=== PATIENT | female | born 1990 | race Caucasian/White ===

== ENCOUNTER → 2016-11-17 | Outpatient (CLI) | payer BC ==
[2016-11-20 11:20] LABS: BLACK RACE non-Black (()); DOWN SYNDROME RISK BY MOM'S AG 1/950 (()); GESTIONAL AGE FOR RISK ESTIMAT Scan estimate (()); MATERNAL WEIGHT/LBS 165 lbs (()); RECOMMENDED FOLLOW UP None. (()); TRISOMY 18 ESTIMATED RISK < 1/100 (())
[2016-11-20 15:16] LABS: GENERAL TEST INFO (QUAD SCREE) SEE COMMENTS (()); INHIBIN SEE COMMENTS (()); INTERPRETATION (QUAD SCREEN) SEE COMMENTS (()); OTHER INFORMATION (QUAD SCRN) Initial testing (()); uE3 SEE COMMENTS (())
== END ==
LOC: MOB LAB 10:28
PROVIDERS: ATTEND Student in an Organized Health Care Education/Training Program
DX: Z36 Encounter for antenatal screening of mother (principal); Z3A.17 17 weeks gestation of pregnancy
CPT/HCPCS: 36415; 81511; 87491; 87591

== ENCOUNTER 2016-11-22 01:31 | Emergency (ER) | payer BC ==
[2016-11-22 01:46] VITALS: RESP 22; TEMP 99.5
[2016-11-22] MEDS ORDERED: NORMAL SALINE 10 ML SYRINGE FLUSH IVP PRN (01:53)
[2016-11-22] MEDS ORDERED: Sodium Chloride 0.9% 1,000 ML PRIMARY IV ONE (01:53)
[2016-11-22 02:11] LABS: BASOPHILS # (AUTO) 0.03 10*3/UL; BASOPHILS % (AUTO) 0.3 % (0-1); EOSINOPHILS % (AUTO) 0.2 % (0-8); HEMATOCRIT 35.1 % (37.0-47.0); HEMOGLOBIN 11.7 g/dL (12.0-16.0); IMM GRAN % (AUTO) 0.2 % (0-5); IMM GRAN# (AUTO) 0.02 10*3/UL; LYMPHOCYTES # (AUTO) 0.81 10*3/uL; LYMPHOCYTES % (AUTO) 8.8 % (10-50); MEAN CORPUSCULAR HGB CONC 33.3 g/dL (33-37); MEAN PLATELET VOLUME 10.1 FL (7.4-12.2); MONOCYTES # (AUTO) 0.73 10*3/UL (0.3-0.8); MONOCYTES % (AUTO) 7.9 % (5-15); NEUTROPHILS # (AUTO) 7.64 10*3/UL; NEUTROPHILS % (AUTO) 82.6 % (50-80); PLATELET MORPHOLOGY COMMENT NORMAL MORPHOLOGY (NORM); RDW COEFFICIENT OF VARIATION 13.6 % (11.5-14.5); RED BLOOD COUNT 3.78 10^6/uL (4.20-5.40); WHITE BLOOD COUNT 9.25 10^3/uL (4.8-10.8)
[2016-11-22 02:20] LABS: ASPARTATE AMINO TRANSFERASE 29 IU/L (8-39); BILIRUBIN,TOTAL 0.3 mg/dL (0.3-1.2); BLOOD UREA NITROGEN 8 mg/dL (7-22); BUN/CREATININE RATIO 13.33 (6-20); CALCIUM 9.5 mg/dL (8.7-10.7); CHLORIDE 108 meq/L (98-112); CREATININE 0.6 mg/dL (0.50-1.20); EST GLOMERULAR FILTRATION > 60 (>60 ml/min/1.73m(2)); GLUCOSE 96 mg/dL (78-110); POTASSIUM 3.8 meq/L (3.8-5.2); SODIUM 139 meq/L (135-145); TOTAL PROTEIN 6.6 g/dL (6.1-8.0)
[2016-11-22] MEDS ORDERED: AZITHROMYCIN 250 MG TABLET PO ONE (02:48)
--- NOTE | 2016-11-22 07:19 | PDOC ---
General Adult HPI - General Chief Complaint: General Medical Stated Complaint: + INFLUENZA WITH WORSE S/S Date Seen by Provider: 11/22/16 Time Seen by Provider: 01:37 Source: POSITIVE: Patient, Other (Aunt) Exam Limitations: POSITIVE: No limitations Nurse's Notes Reviewed & Considered: Yes - History of Present Illness Initial Comment: The patient is a 25-year-old female. She is brought to the emergency room by her aunt. Patient states that for the past 3 days she has had a sore throat cough and some bilateral ear pain. She was seen in the clinic today and had a positive test for influenza A. her cousin was diagnosed with strep throat today. She states that her cough and sore throat have gotten worse today. She is 18 weeks . She was not started on Tamiflu today, and she has been symptomatic for 3 days. Have you received a tetanus shot in the past 10 years?: No Body Location Affected: REPORTS: Chest, Other (Sore throat) Timing: REPORTS: Gradual, Getting Worse Duration: >24 hours (3 days) Severity: Moderate Quality: REPORTS: "Pain" (Sore throat and some chest pain with cough) Context: REPORTS: Coughing. DENIES: None, Sitting, Standing, Activity, Emotional stress, Recent Trauma, Recent Surgery, Sleep, Rest, Lifting, Turning, Bending, Fall, Near Fall, Other Modifying Factors: improves with: Nothing Similar Symptoms Previously: No Recent Care Received: REPORTS: Recently Seen, Treated by MD (As above) Any Prior Injuries Related to Current Complaint?: No - Patient Home Medications Home Medications: Home Medications Cholecalciferol [Vitamin D3] 5 cap PO cap 09/22/16 Cyanocobalamin/Folic Acid [Vitamin Q04-Hrpdu Acid Tablet] 1 each PO tab Multivitamin [Multi-Vitamin Daily] 1 each PO tab 09/22/16 S-Adenosylmethionine Sul Tosyl [Shai-E] 668 mg PO tab 09/22/16 Mometasone Furoate [Asmanex Hfa] Sample #1 11/21/16 Azithromycin [Zithromax] 500 mg PO DAILY #4 tab 11/22/16 - Patient Allergies Allergies/Adverse Reactions: Allergies Allergy/AdvReac Type Severity Reaction Status Date / Time [place] Allergy NOT Uncoded 11/22/16 01:37 APPLICABLE Past Medical History - heen HEENT History: Denies History Cardiovascular History: Denies History Respiratory History: Denies History Gastrointestinal History: Denies History Genitourinary History: Denies History Endocrine History: Denies History Musculoskeletal History: Denies History Neurological History: Denies History Blood Disorders: Other (please comment) Additional Blood Disorders History: LYME DISEASE IN REMISSION Psychiatric History: Denies History History of Sexually Transmitted Diseases: No Female Reproductive History: Denies History Obstetrical History: Denies History Cancer History: Denies History In Past Year Been Physically Harmed or Verbally Threatened: No History of MDRO: No History of Other Communicable Diseases: No Tobacco Use: Never Smoker Alcohol Use: None Substance Use Type: None Previous Surgical History: Yes Type / Date of Surgery: APPY Significant Family History: No pertinent family hx Past Medical History Reviewed: Reviewed - No Changes ROS - Limitations ROS Limitations: No Limitations Constitution: REPORTS: Fever Cardiovascular: REPORTS: Denies Cardiac Symptoms Respiratory: REPORTS: Cough Non Productive, Shortness Of Breath Neurological: REPORTS: Denies Neuro Symptoms Gastrointestinal: REPORTS: Denies GI Symptoms Endocrine: REPORTS: Denies Symptoms Musculoskeletal: REPORTS: Denies MS Symptoms Genitourinary: REPORTS: Denies Symptoms Eyes: REPORTS: Denies Symptoms ENT: REPORTS: Earache, Sore Throat Skin: REPORTS: Denies Skin Symptoms Lympathic: REPORTS: Denies Lympathic Symptoms Immunologic: POSITIVE: Denies Symptoms Psychiatric: POSITIVE: Denies Psych Symptoms General Adult Exam - General Appearance General Appearance: POSITIVE: Alert, Cooperative, No Acute Distress, No Evidence of Trauma - HEENT HEENT: POSITIVE: Head Inspection Nml, Eyes Inspection Nml, Ears Inspection Nml, Nose Inspection Nml, Oral/Dental Inspect. Nml, PERRL, EOMI, Pharyngeal Erythema. NEGATIVE: Pharynx Inspect. Nml - Pupils Pupil Size: 4 mm: Bilateral (PERRLA) - Neck Neck: POSITIVE: Normal Inspection, Thyroid Normal - Respiratory Respiratory: POSITIVE: No Respiratory Distress, Breath Sounds Normal, Chest Non- Tender - Cardiovascular Cardiovascular: POSITIVE: Regular Rate & Rhythm, No Murmur, No Gallop, PMI Normal Peripheral Pulses: Radial (R): 2+, Radial (L): 2+ - Abdomen Abdomen: Soft: (All Quadrants), Normal Bowel Sounds: (All Quadrants), Denies Tenderness: (All Quadrants), No Splenomegaly: (All Quadrants), No Hepatomegaly: (All Quadrants), No Guarding: (All Quadrants), No Rebound: (All Quadrants), No Palpable Pulse: (All Quadrants), No Palpabale Mass: (All Quadrants), No Distention: (All Quadrants), No Rigidity: (All Quadrants) - Back Back: POSITIVE: Normal Inspection - Skin Skin: POSITIVE: Normal Color, Warm, Dry, No Rash - Extremities Extremity: Non-Tender: (All Extremities), Normal ROM: (All Extremities), Normal Inspection: (All Extremities) - Neurological / Psychological Neurological: POSITIVE: Oriented X3, 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, Motor Normal, Sensation Normal, 5, 6 Images - Dental Dental: 1 - Erythema General Adult Progress - Results Reviewed by me Lab Results Reviewed: Yes (strep screen negative) Lab Results:: Laboratory Results 11/22/16 Range/Units 02:08 WBC 9.25 (4.8-10.8) 10^3/uL RBC 3.78 L (4.20-5.40) 10^6/uL Hgb 11.7 L (12.0-16.0) g/dL Hct 35.1 L (37.0-47.0) % MCV 92.9 (81-99) FL MCH 31.0 (27-31) PG MCHC 33.3 (33-37) g/dL RDW Std Deviation 45.2 (39-50) fL RDW Coeff of Catherine 13.6 (11.5-14.5) % Plt Count 221 (140-350) 10*3/uL MPV 10.1 (7.4-12.2) FL Immature Gran % (Auto) 0.2 (0-5) % Neut % (Auto) 82.6 H (50-80) % Lymph % (Auto) 8.8 L (10-50) % Ramsey % (Auto) 7.9 (5-15) % Eos % (Auto) 0.2 (0-8) % Baso % (Auto) 0.3 (0-1) % Immature Gran # (Auto) 0.02 10*3/UL Neut # (Auto) 7.64 10*3/UL Lymph # (Auto) 0.81 10*3/uL Ramsey # (Auto) 0.73 (0.3-0.8) 10*3/UL Eos # (Auto) 0.02 10*3/UL Baso # (Auto) 0.03 10*3/UL WBC Morphology Comment Normal morphology (NORM) Plt Morphology Comment Normal morphology (NORM) RBC Morph Comment Normal morphology (NORM) Sodium 139 (135-145) meq/L Potassium 3.8 (3.8-5.2) meq/L Chloride 108 (98-112) meq/L Carbon Dioxide 20 L (23-33) meq/L Anion Gap 11 (5-20) BUN 8 (7-22) mg/dL Creatinine 0.6 (0.50-1.20) mg/dL Estimated GFR > 60 (>60 ml/min/1.73m(2)) BUN/Creatinine Ratio 13.33 (6-20) Glucose 96 (78-110) mg/dL Calculated Osmolality 285.0 (267-292) mOsm/kg Calcium 9.5 (8.7-10.7) mg/dL Total Bilirubin 0.3 (0.3-1.2) mg/dL AST 29 (8-39) IU/L ALT 40 (9-52) IU/L Alkaline Phosphatase 47 (38-126) IU/L Total Protein 6.6 (6.1-8.0) g/dL Albumin 3.8 (3.5-4.8) g/dL Globulin 2.8 (2.50-4.10) g/dL Albumin/Globulin Ratio 1.30 (1.3-2.0) mg/g - Patient's Progress Pain Medication Addressed: POSITIVE: Not Applicable School/Work Release Addressed: POSITIVE: Not Applicable Re-Examine Time: 02:45 Status: POSITIVE: Unchanged, Re-Examined Antibiotics Given: Yes (Zithromax, 500 mg daily for 5 days) - Consult Counseled: POSITIVE: Patient, Family (Aunt), RE: Lab Results, RE: DX, RE: Need for F/U Patient Care Time - Estimated PCT Patient Care Time (In Minutes): 35 Vital Signs - Recent Vital Signs Vital Signs: Vital Signs (Last 8 hours) Temp Pulse Resp BP Pulse Ox 11/22/16 01:34 99.5 F 108 H 22 136/87 97 - VS Reviewed Vital Signs Reviewed: Yes Discharge Clinical Impression: Pharyngitis, Bronchitis, Influenza A Discharge Disposition: Discharged to Home Condition: Stable Prescriptions / Orders: Azithromycin [Zithromax] 500 mg PO DAILY #4 tab Patient Instructions Given at Discharge: Pharyngitis (ED), Influenza (ED) Additional Instructions: Since you have had flu symptoms for over 3 days, Tamiflu, and antiviral medicine for influenza would not be effective. Your sore throat may be due to a viral infection or mycoplasma; mycoplasmal sore throats and bronchitis is are treated with Zithromax, which we decided to start you on. Take Zithromax 1 daily for the next 5 days. Increase fluids. Follow-up with your primary care provider Thursday. Return here anytime if condition worsens in any way. Tylenol for discomfort. Follow Up With: DOROTA YANEZ [Primary Care Provider] - (Instructions as above. Follow-up with your primary care provider Thursday. Return here anytime if condition worsens in any way.)
== END 2016-11-22 03:07 | disposition home or self-care (01) ==
LOC: ER 01:31
DX: J09.X2 Influenza due to identified novel influenza A virus with other respiratory manifestations (principal); J40 Bronchitis, not specified as acute or chronic
CPT/HCPCS: 80053; 85025; 87802; 96360; 99283; J7030

== ENCOUNTER → 2016-12-01 | Outpatient (CLI) | payer BC ==
--- NOTE | 2016-12-01 14:32 | DI ---
OBSTETRICAL ULTRASOUND, 12/01/2016 9:02 AM: Clinical History: Antepartum screening. Previous Exam: 10/24/2016. ADJUSTED DATE FROM EARLY OBUS: 07/18/2016. There is a single live IUP currently in vertex presentation. Amnionic fluid content is normal. activity is observed as follows: Cardiac, extremity, and respiratory. The placenta is posterior corpu s and Grade 1. heart rate is 150 beats/minute and regular. There is a 3 vessel cord. A 4 chambe r heart view is obtained. The aortic arch and descending aorta are normal. Some echogenic foci are vi sualized in the stomach. BPD, HC, AC, and FL measurements are 49 mm, 178 mm, 156 mm, and 31 mm, respe ctively. These measurements correspond to EGA values of 20 weeks 6 days, 20 weeks 2 days, 20 weeks 6 days and 19 weeks 5 days, respectively. Composite EGA is 20 weeks 3 days. The US EDC is 04/17/2017. ED C by adjusted date from early OBUS is 04/24/2017. Readin. Single live fetus with vertex presentation and normal amniotic fluid content. Placenta is posteri or corpus and grade 1. 2. The composite EGA is 20 weeks 3 days with an ultrasound EDC of 04/17/2017. Based on the adjusted L MP of 10/24/2016, the EDC would be 04/24/2017.
== END ==
LOC: US 08:54
PROVIDERS: ATTEND Student in an Organized Health Care Education/Training Program
DX: Z36 Encounter for antenatal screening of mother (principal); Z3A.18 18 weeks gestation of pregnancy
CPT/HCPCS: 76805

== ENCOUNTER → 2017-01-07 | Outpatient (CLI) | payer BC ==
[2017-01-07 12:59] LABS: HEMATOCRIT 36.7 % (37.0-47.0); HEMOGLOBIN 12.1 g/dL (12.0-16.0); MEAN CORPUSCULAR HEMOGLOBIN 30.9 PG (27-31); MEAN PLATELET VOLUME 9.4 FL (7.4-12.2); RDW COEFFICIENT OF VARIATION 13.7 % (11.5-14.5); RED BLOOD COUNT 3.91 10^6/uL (4.20-5.40); WHITE BLOOD COUNT 11.94 10^3/uL (4.8-10.8)
== END ==
LOC: LAB 11:35
PROVIDERS: ATTEND Student in an Organized Health Care Education/Training Program
DX: Z36 Encounter for antenatal screening of mother (principal); Z3A.24 24 weeks gestation of pregnancy
CPT/HCPCS: 36415; 82950; 85027

== ENCOUNTER → 2017-01-08 | Outpatient (CLI) | payer BC | LOC: LAB 09:44 | PROVIDERS: ATTEND Student in an Organized Health Care Education/Training Program | DX: O99.810 Abnormal glucose complicating pregnancy (principal); Z3A.24 24 weeks gestation of pregnancy | CPT/HCPCS: 36415; 82951; 82952 ==

== ENCOUNTER → 2017-02-13 | Outpatient (CLI) | payer BC ==
[2017-02-13 10:41] LABS: HEMATOCRIT 38.1 % (37.0-47.0); HEMOGLOBIN 12.7 g/dL (12.0-16.0); MEAN CORPUSCULAR HEMOGLOBIN 30.4 PG (27-31); MEAN CORPUSCULAR HGB CONC 33.3 g/dL (33-37); MEAN CORPUSCULAR VOLUME 91.1 FL (81-99); MEAN PLATELET VOLUME 9.5 FL (7.4-12.2); RED BLOOD COUNT 4.18 10^6/uL (4.20-5.40)
[2017-02-13 10:51] LABS: BLOOD UREA NITROGEN 11 mg/dL (7-22); BUN/CREATININE RATIO 15.71 (6-20); EST GLOMERULAR FILTRATION > 60 (>60 ml/min/1.73m(2)); SERUM ALBUMIN 3.6 g/dL (3.5-4.8)
[2017-02-18 09:41] LABS: CHENODEOXYCOHLIC ACID 0.92 nmol/mL (<=6.00); CHOLIC ACID 0.41 nmol/mL (<=5.00); DEOXYCHOLIC ACID 0.71 nmol/mL (<=6.00)
[2017-02-18 12:54] LABS: TOTAL BILE ACIDS 2.51 nmol/mL (<=19.00)
== END ==
LOC: LAB 02-12 12:39
PROVIDERS: ATTEND Student in an Organized Health Care Education/Training Program
DX: O26.893 Other specified pregnancy related conditions, third trimester (principal); L29.8 Other pruritus; Z3A.29 29 weeks gestation of pregnancy
CPT/HCPCS: 36415; 80053; 82542; 85027

== ENCOUNTER → 2017-03-05 | Outpatient (CLI) | payer BC ==
[2017-03-05 11:35] LABS: HEMATOCRIT 36.7 % (37.0-47.0); HEMOGLOBIN 12.1 g/dL (12.0-16.0); MEAN CORPUSCULAR HEMOGLOBIN 29.7 PG (27-31); MEAN CORPUSCULAR VOLUME 90.2 FL (81-99); MEAN PLATELET VOLUME 10.1 FL (7.4-12.2); RED BLOOD COUNT 4.07 10^6/uL (4.20-5.40)
[2017-03-05 11:50] LABS: BLOOD UREA NITROGEN 10 mg/dL (7-22); BUN/CREATININE RATIO 16.66 (6-20); CALCIUM 9.3 mg/dL (8.7-10.7); EST GLOMERULAR FILTRATION > 60 (>60 ml/min/1.73m(2)); SERUM ALBUMIN 3.3 g/dL (3.5-4.8); URIC ACID 3.9 mg/dl (2.5-6.2)
[2017-03-10 13:31] LABS: CHENODEOXYCOHLIC ACID 0.25 nmol/mL (<=6.00); CHOLIC ACID 0.23 nmol/mL (<=5.00); DEOXYCHOLIC ACID 0.24 nmol/mL (<=6.00)
[2017-03-10 14:21] LABS: TOTAL BILE ACIDS 0.93 nmol/mL (<=19.00)
== END ==
LOC: MOB LAB 09:50
PROVIDERS: ATTEND Student in an Organized Health Care Education/Training Program
DX: O12.03 Gestational edema, third trimester (principal); O26.893 Other specified pregnancy related conditions, third trimester; L29.9 Pruritus, unspecified; Z3A.32 32 weeks gestation of pregnancy
CPT/HCPCS: 36415; 80053; 82542; 83615; 84550; 85025

== ENCOUNTER → 2017-03-23 | Outpatient (CLI) | payer BC ==
--- NOTE | 2017-03-23 15:54 | DI ---
LIMITED OBSTETRICAL ULTRASOUND, 03/23/2017 2:57 PM Clinical History: Uterine size/date discrepancy in the third trimester. Large for dates. Previous Exam: 10/24/2016 and 12/01/2016. ADJUSTED LMP: 07/18/2016. There is a single live IUP currently in vertex presentation. Amnionic fluid content is normal. Amniot ic fluid index is 19.7 cm. activity is observed as follows: cardiac and extremity. The placenta is posterior corpus and Grade 1. heart rate varies between 136-155 beats/minute and is regular . Distal femoral epiphyses are visualized. BPD, HC, AC, and FL measurements are 94 mm, 334 mm, 352 mm , and 74 mm, respectively. These measurements correspond to EGA values of 38 weeks 2 days, 38 weeks 2 days, 39 weeks 1 day, and 38 weeks 0 days, respectively. Composite EGA is 38 weeks 3 days. The US ED C is 04/03/2017. EDC by adjusted LMP is 04/24/2017. LMP percentile is 98%. Estimated weight is 354 7 g, plus or minus 518 g. Readin. Single live fetus with vertex presentation and normal amniotic fluid content. Amniotic fluid inde x is 19.7 cm. Placenta is posterior corpus and grade 1. 2. The composite EGA is 38 weeks 3 days with an ultrasound EDC of 04/03/2017. Based on the adjusted LM P of 07/18/2016, the EDC would be 04/24/2017. 3. LMP percentile is 98%. Estimated weight is 3547 g, plus or minus 518 g.
== END ==
LOC: US 14:54
PROVIDERS: ATTEND Student in an Organized Health Care Education/Training Program
DX: O26.843 Uterine size-date discrepancy, third trimester (principal); Z3A.35 35 weeks gestation of pregnancy
CPT/HCPCS: 76815

== ENCOUNTER → 2017-03-26 | Outpatient (CLI) | payer BC ==
[2017-03-26 14:06] LABS: BILIRUBIN,URINE NEGATIVE (NEG); CLARITY,URINE Slightly Cloudy (CLEAR); GLUCOSE, URINE (UA) NEGATIVE (NEG); NITRATE,URINE NEGATIVE (NEG); OCCULT BLOOD,URINE Trace-intact (NEG); PROTEIN,URINE NEGATIVE (NEG); UROBILINOGEN,URINE 0.2 mg/dL (0.2)
[2017-03-26 14:11] LABS: COLOR,URINE Other; URINE SAMPLE TYPE CLEAN CATCH URINE
[2017-03-26 14:12] LABS: BACTERIA,URINE FEW; SQUAMOUS EPITHELIAL CELL,UR MANY
== END ==
LOC: LAB 13:51
PROVIDERS: ATTEND Family Medicine
DX: O26.893 Other specified pregnancy related conditions, third trimester (principal); R50.9 Fever, unspecified; Z3A.35 35 weeks gestation of pregnancy
CPT/HCPCS: 81001; 87088

== ENCOUNTER → 2017-03-31 | Outpatient (CLI) | payer BC ==
[2017-03-31 16:39] LABS: HEMATOCRIT 36.4 % (37.0-47.0); MEAN CORPUSCULAR HEMOGLOBIN 29.3 PG (27-31); MEAN CORPUSCULAR VOLUME 88.8 FL (81-99); RED BLOOD COUNT 4.1 10^6/uL (4.20-5.40)
[2017-03-31 16:45] LABS: BLOOD UREA NITROGEN 14 mg/dL (7-22); CALCIUM 9.6 mg/dL (8.7-10.7); EST GLOMERULAR FILTRATION > 60 (>60 ml/min/1.73m(2)); SERUM ALBUMIN 3.3 g/dL (3.5-4.8)
[2017-04-03 14:11] LABS: CHENODEOXYCOHLIC ACID 1.25 nmol/mL (<=6.00); CHOLIC ACID 0.61 nmol/mL (<=5.00); DEOXYCHOLIC ACID 1.11 nmol/mL (<=6.00)
[2017-04-03 15:01] LABS: TOTAL BILE ACIDS 3.36 nmol/mL (<=19.00)
== END ==
LOC: MOB LAB 15:09
PROVIDERS: ATTEND Family Medicine
DX: O26.613 Liver and biliary tract disorders in pregnancy, third trimester (principal); Z36 Encounter for antenatal screening of mother; Z3A.36 36 weeks gestation of pregnancy
CPT/HCPCS: 80053; 82542; 85027; 87150

== ENCOUNTER 2017-04-03 09:27 | Outpatient (CLI) | payer BC ==
[2017-04-03] MEDS ORDERED: NORMAL SALINE 10 ML SYRINGE FLUSH IVP PRN (10:30)
[2017-04-03 10:34] VITALS: RESP 16; TEMP 98.1
[2017-04-03 10:47] LABS: HEMOGLOBIN 11.6 g/dL (12.0-16.0); MEAN CORPUSCULAR HEMOGLOBIN 29.5 PG (27-31); MEAN CORPUSCULAR HGB CONC 33.1 g/dL (33-37); MEAN CORPUSCULAR VOLUME 89.1 FL (81-99); MEAN PLATELET VOLUME 9.9 FL (7.4-12.2); RED BLOOD COUNT 3.93 10^6/uL (4.20-5.40)
[2017-04-03 10:55] LABS: BLOOD UREA NITROGEN 10 mg/dL (7-22); CALCIUM 8.4 mg/dL (8.7-10.7); EST GLOMERULAR FILTRATION > 60 (>60 ml/min/1.73m(2)); SERUM ALBUMIN 3.2 g/dL (3.5-4.8); URIC ACID 5.1 mg/dl (2.5-6.2)
--- NOTE | 2017-04-03 13:54 | DI ---
LIMITED OBSTETRICAL ULTRASOUND FOR BIOPHYSICAL PROFILE, 04/03/2017 11:22 AM Clinical History: Hypertension. Decreased variability. Previous Exam: 03/23/2017. ADJUSTED LMP: 07/18/2016. GUTIERREZ: 16.0 cm. Heart Rate: 155 Respiration Score: 2 Fine Motor Score: 2 Gross Motor Score: 2 Amnionic Fluid Score: 2 Reading: Biophysical Profile Score: 8/8
[2017-04-05 09:11] LABS: 24 HOUR URINE TOTAL VOLUME 5550 ML
--- NOTE | 2017-04-10 09:56 | PDOC(PROG) ---
Intake - - Reason for Visit/Chief Complaint: Swelling Additional Reason(s) for Visit: elevated bp Admitted From: Home - Estimated Due Date: 04/25/17 Gestational Age in Weeks and Days: 37 Weeks and 6 Days : 2 Para: 0 Number of Abortions (Spont./Elective): 0 Living Children: 0 - Labs Blood Type and Rh: O+ Group B Strep: Negative Hepatitis B Surface Antigen: Absent HIV: Negative Rubella Status: Immune VDRL/RPR: Absent Maternal - Vital Signs Last Taken Vital Signs: Vital Signs - Last Taken Temperature 98.1 F 04/03/17 10:30 Pulse Rate 95 04/03/17 10:30 Respiratory Rate 16 04/03/17 10:30 Blood Pressure 149/89 04/03/17 10:30 Pulse Ox 98 04/03/17 10:30 - Uterine Activity Uterine Contraction Monitor Mode: External Contraction Frequency(minutes): none pt denies - Vaginal Discharge Vaginal Bleeding Amount: None Vaginal Discharge Amount: None Monitoring - Uterine Activity Uterine Contraction Monitor Mode: External Contraction Frequency(minutes): none pt denies Results - Labs CBC and BMP: 04/03/17 10:41 04/03/17 10:41 - Bedside Testing Bedside Urine Ketone: Negative Bedside Urine Leukocytes Esterase: Negative Bedside Urine Nitrite: Negative Bedside Urine Occult Blood: Negative Bedside Urine Protein: Negative Bedside Specific [place]: 1.015 Assessment and Plan - Patient Problems (1) Edema during in third trimester Status: Acute
== END 2017-04-03 12:39 | disposition home or self-care (01) ==
LOC: OBOP 09:27
PROVIDERS: ATTEND Family Medicine
DX: O12.03 Gestational edema, third trimester (principal); O16.3 Unspecified maternal hypertension, third trimester; Z3A.37 37 weeks gestation of pregnancy
CPT/HCPCS: 36415; 59025; 76818; 80053; 81003; 83615; 84156; 84550; 85025; 99211

== ENCOUNTER 2017-04-10 10:01 | Outpatient (CLI) | payer BC ==
[2017-04-10 10:14] VITALS: RESP 20; TEMP 98.4
[2017-04-10 10:28] LABS: HEMATOCRIT 35.8 % (37.0-47.0); HEMOGLOBIN 11.9 g/dL (12.0-16.0); MEAN CORPUSCULAR HEMOGLOBIN 29.2 PG (27-31); MEAN CORPUSCULAR HGB CONC 33.2 g/dL (33-37); MEAN PLATELET VOLUME 10.2 FL (7.4-12.2); RED BLOOD COUNT 4.07 10^6/uL (4.20-5.40)
[2017-04-10 10:48] LABS: BLOOD UREA NITROGEN 11 mg/dL (7-22); BUN/CREATININE RATIO 13.75 (6-20); CALCIUM 8.8 mg/dL (8.7-10.7); EST GLOMERULAR FILTRATION > 60 (>60 ml/min/1.73m(2)); SERUM ALBUMIN 3.1 g/dL (3.5-4.8); URIC ACID 5.6 mg/dl (2.5-6.2)
--- NOTE | 2017-04-10 12:12 | DI ---
US OB , LIMITED,04/10/2017 10:18 AM: Clinical History: Proteinuria Previous Exam: April 03, 2017 Findings: Multiple grayscale and color Doppler sonographic images are obtained through the pelvis demonstrating a single live intrauterine gestation in vertex presentation. The cervix is long and closed measuring 4.8 cm in length. The amniotic fluid index is normal (16.9 cm). Estimated gestational age was determined by a composite of biparietal diameter, head circumference, a bdominal circumference and femur length yielding an estimated gestational age by ultrasound of 39 wee ks 6 days. The abdominal circumference measures at greater than the 98th percentile. Estimated weight was 3909 g (95th percentile). Umbilical cord Doppler is are performed reading ST ratios of between 2.3 and 2.8. Impression: 1. Single live intrauterine gestation with size equal to dates. Estimated weight places the pat ient in the 95th percentile. 2. Abdominal circumference measures at greater than the 98th percentile. 3. Cervix long and closed.
[2017-04-10] MEDS ORDERED: NORMAL SALINE 10 ML SYRINGE FLUSH IVP PRN (14:08)
--- NOTE | 2017-04-15 08:55 | PDOC(PROG) ---
Intake - - Reason for Visit/Chief Complaint: Bi-weekly NST, Other Additional Reason(s) for Visit: labs, US Admitted From: Home - Estimated Due Date: 04/25/17 Gestational Age in Weeks and Days: 38 Weeks and 4 Days Para: 0 Number of Abortions (Spont./Elective): 0 Living Children: 0 - Labs Blood Type and Rh: O+ Group B Strep: Negative Maternal - Vital Signs Last Taken Vital Signs: Vital Signs - Last Taken Temperature 98.4 F 04/10/17 10:06 Pulse Rate 84 04/10/17 10:56 Respiratory Rate 20 04/10/17 10:06 Blood Pressure 146/82 04/10/17 11:52 Pulse Ox 99 04/10/17 10:06 - Uterine Activity Uterine Contraction Monitor Mode: External Contraction Frequency(minutes): 2-8 Contraction Duration (seconds): 30-50 Uterine Contraction Pattern: Irregular Uterine Tone Measurement Phase: Resting Uterine Contraction Intensity: Mild - Vaginal Discharge Vaginal Bleeding Amount: None Vaginal Discharge Amount: None Monitoring - Uterine Activity Uterine Contraction Monitor Mode: External Contraction Frequency(minutes): 2-8 Contraction Duration (seconds): 30-50 Uterine Contraction Pattern: Irregular Uterine Tone Measurement Phase: Resting Uterine Contraction Intensity: Mild Results - Labs CBC and BMP: 04/10/17 10:20 04/10/17 10:20 - Bedside Testing Bedside Urine Ketone: Negative Bedside Urine Leukocytes Esterase: Small Bedside Urine Nitrite: Negative Bedside Urine Occult Blood: Negative Bedside Urine Protein: Trace Bedside Specific [place]: 1.005 Assessment and Plan - Patient Problems (1) Pre-eclampsia Status: Acute Qualifiers: Trimester: third trimester Qualified Description: Pre-eclampsia, third trimester Qualifier Code(s): (O14.93) Unspecified pre-eclampsia, third trimester
== END 2017-04-10 12:07 | disposition home or self-care (01) ==
LOC: OBOP 10:01
PROVIDERS: ATTEND Family Medicine
DX: O14.93 Unspecified pre-eclampsia, third trimester (principal); O12.13 Gestational proteinuria, third trimester; Z3A.37 37 weeks gestation of pregnancy
CPT/HCPCS: 36415; 59025; 76815; 80053; 81003; 83615; 84550; 85025; 99211

== ENCOUNTER 2017-04-14 10:39 | Outpatient (CLI) | payer BC ==
[2017-04-14 10:49] VITALS: RESP 18; TEMP 98.4
[2017-04-14 11:38] LABS: HEMATOCRIT 34.8 % (37.0-47.0); HEMOGLOBIN 11.4 g/dL (12.0-16.0); MEAN CORPUSCULAR HEMOGLOBIN 29.2 PG (27-31); MEAN CORPUSCULAR HGB CONC 32.8 g/dL (33-37); MEAN PLATELET VOLUME 9.9 FL (7.4-12.2); RED BLOOD COUNT 3.91 10^6/uL (4.20-5.40)
[2017-04-14 11:48] LABS: BLOOD UREA NITROGEN 11 mg/dL (7-22); BUN/CREATININE RATIO 13.75 (6-20); CALCIUM 8.8 mg/dL (8.7-10.7); EST GLOMERULAR FILTRATION > 60 (>60 ml/min/1.73m(2)); SERUM ALBUMIN 3.1 g/dL (3.5-4.8); URIC ACID 5.4 mg/dl (2.5-6.2)
--- NOTE | 2017-04-25 19:50 | PDOC(PROG) ---
Intake - - Reason for Visit/Chief Complaint: Bi-weekly NST Admitted From: Physician Office - Estimated Due Date: 04/25/17 Gestational Age in Weeks and Days: 40 Weeks and 0 Days : 1 Para: 0 Number of Abortions (Spont./Elective): 0 Living Children: 0 - Labs Blood Type and Rh: O+ Group B Strep: Negative Hepatitis B Surface Antigen: Absent HIV: Negative Rubella Status: Immune VDRL/RPR: Absent Maternal - Vital Signs Last Taken Vital Signs: Vital Signs - Last Taken Temperature 98.4 F 04/14/17 10:47 Pulse Rate 79 04/14/17 10:47 Respiratory Rate 18 04/14/17 10:47 Blood Pressure 149/106 04/14/17 10:47 Pulse Ox 98 04/14/17 10:43 - Uterine Activity Uterine Contraction Monitor Mode: External Contraction Frequency(minutes): possible pt unaware "nothing regular" - Vaginal Discharge Vaginal Bleeding Amount: None Vaginal Discharge Amount: None Monitoring - Uterine Activity Uterine Contraction Monitor Mode: External Contraction Frequency(minutes): possible pt unaware "nothing regular" Results - Labs CBC and BMP: 04/14/17 11:33 04/14/17 11:33 - Bedside Testing Bedside Urine Ketone: Negative Bedside Urine Leukocytes Esterase: Negative Bedside Urine Nitrite: Negative Bedside Urine Occult Blood: Negative Bedside Urine Protein: Trace Bedside Specific [place]: 1.005 Assessment and Plan - Patient Problems (1) Mild pre-eclampsia affecting first Status: Acute
== END 2017-04-14 12:12 | disposition home or self-care (01) ==
LOC: OBOP 10:39
PROVIDERS: ATTEND Family Medicine
DX: O14.03 Mild to moderate pre-eclampsia, third trimester (principal); O12.03 Gestational edema, third trimester; Z3A.38 38 weeks gestation of pregnancy
CPT/HCPCS: 36415; 59025; 80053; 81003; 83615; 84550; 85025; 99211

== ENCOUNTER 2017-04-17 10:04 | Outpatient (CLI) | payer BC ==
[2017-04-17] MEDS ORDERED: NORMAL SALINE 10 ML SYRINGE FLUSH IVP PRN (10:37)
[2017-04-17 11:06] LABS: HEMATOCRIT 34.9 % (37.0-47.0); HEMOGLOBIN 11.6 g/dL (12.0-16.0); MEAN CORPUSCULAR HEMOGLOBIN 29.2 PG (27-31); MEAN CORPUSCULAR HGB CONC 33.2 g/dL (33-37); MEAN CORPUSCULAR VOLUME 87.9 FL (81-99); MEAN PLATELET VOLUME 10.3 FL (7.4-12.2); RED BLOOD COUNT 3.97 10^6/uL (4.20-5.40)
[2017-04-17 11:13] VITALS: RESP 18; TEMP 98.1
[2017-04-17 11:13] LABS: BLOOD UREA NITROGEN 8 mg/dL (7-22); BUN/CREATININE RATIO 11.42 (6-20); CALCIUM 8.6 mg/dL (8.7-10.7); EST GLOMERULAR FILTRATION > 60 (>60 ml/min/1.73m(2)); SERUM ALBUMIN 3.2 g/dL (3.5-4.8); URIC ACID 4.8 mg/dl (2.5-6.2)
== END 2017-04-17 17:56 | disposition home or self-care (01) ==
LOC: US 10:04
PROVIDERS: ATTEND Family Medicine
DX: O13.3 Gestational [pregnancy-induced] hypertension without significant proteinuria, third trimester (principal); Z3A.38 38 weeks gestation of pregnancy
CPT/HCPCS: 36415; 59025; 76815; 80053; 81003; 83615; 84550; 85025; 99211

== ENCOUNTER 2017-04-19 20:00 | Inpatient (IN) | payer BC ==
[2017-04-19] MEDS ORDERED: ONDANSETRON 4 MG/2 ML VIAL IVP PRN (20:24)
[2017-04-19] MEDS ORDERED: Carboprost Inj 250 MCG/ML AMP IM PRN (20:24)
[2017-04-19] MEDS ORDERED: fentaNYL Inj 100 MCG/2 ML VIAL IV PRN (20:24)
[2017-04-19] MEDS ORDERED: Phenylephrine Inj 50 MCG in Normal Saline Flush 0.5 ML IVP PRN (20:24)
[2017-04-19] MEDS ORDERED: Lidocaine 1% 10 MG/ML - 20 ML VIAL SUBCUT PRN (20:24)
[2017-04-19] MEDS ORDERED: BUTORPHANOL TARTRATE 2 MG/1 ML VIAL IVP PRN (20:24)
[2017-04-19] MEDS ORDERED: CefOXitin Inj 2 GM in Sodium Chloride 0.9% 100 ML IV PRN (20:24)
[2017-04-19] MEDS ORDERED: OXYTOCIN 10 UNIT/1 ML IM PRN (20:24)
[2017-04-19] MEDS ORDERED: ePHEDrine Inj 5 MG in Normal Saline Flush 1 ML IVP PRN (20:24)
[2017-04-19] MEDS ORDERED: TERBUTALINE SULFATE 1 MG/1 ML SDV SUBCUT PRN (20:24)
[2017-04-19] MEDS ORDERED: NALOXONE 0.4 MG/1 ML VIAL IVP PRN (20:24)
[2017-04-19] MEDS ORDERED: Naloxone Inj 0.01 MG in Normal Saline Flush 1 ML IVP PRN (20:24)
[2017-04-19] MEDS ORDERED: Metoclopramide Inj 10 MG/2 ML VIAL IV PRN (20:24)
[2017-04-19] MEDS ORDERED: LIDOCAINE W/ SODIUM BICARB 0.5 ML SYR SUBD PRN (20:24)
[2017-04-19] MEDS ORDERED: NORMAL SALINE 10 ML SYRINGE FLUSH IVP PRN (20:24)
[2017-04-19] MEDS ORDERED: CITRIC ACID/SODIUM CITRATE 30 ML CUP PO PRN (20:24)
[2017-04-19] MEDS ORDERED: diphenhydrAMINE 50 MG/1 ML VIAL IVP PRN (20:24)
[2017-04-19] MEDS ORDERED: Famotidine Inj 20 MG in Normal Saline Flush 10 ML IVP PRN ×4 (20:24)
[2017-04-19] MEDS ORDERED: MISOPROSTOL 200 MCG TABLET RECTAL PRN (20:24)
[2017-04-19] MEDS ORDERED: CALCIUM CARBONATE 500 MG (TUMS) CHEWABLE TABLET PO PRN (20:24)
[2017-04-19] MEDS ORDERED: METHYLERGONOVINE MALEATE 0.2 MG/1 ML VIAL IM PRN (20:24)
[2017-04-19] MEDS ORDERED: Oxytocin 20 Units + LR 1,000 ML IV SCH (20:30)
[2017-04-19] MEDS ORDERED: Zolpidem Tab 5 MG TAB PO PRN (20:48)
[2017-04-19] MEDS: Lactated Ringers-OB Dept 1,000 ML PRIMARY IV SCH (21:07)
[2017-04-19] MEDS ORDERED: Lactated Ringers 1,000 ML PRIMARY IV ONE (21:52)
[2017-04-19 21:53] LABS: BLOOD UREA NITROGEN 14 mg/dL (7-22); CALCIUM 9.2 mg/dL (8.7-10.7); EST GLOMERULAR FILTRATION > 60 (>60 ml/min/1.73m(2)); SERUM ALBUMIN 3.5 g/dL (3.5-4.8); URIC ACID 4.9 mg/dl (2.5-6.2)
[2017-04-19] MEDS: Misoprostol Tab 100 MCG TAB VAGINAL SCH (22:00)
[2017-04-19 22:07] LABS: HEMATOCRIT 35.9 % (37.0-47.0); HEMOGLOBIN 12.1 g/dL (12.0-16.0); MEAN CORPUSCULAR HEMOGLOBIN 29.4 PG (27-31); MEAN CORPUSCULAR HGB CONC 33.7 g/dL (33-37); MEAN CORPUSCULAR VOLUME 87.1 FL (81-99); RED BLOOD COUNT 4.12 10^6/uL (4.20-5.40)
[2017-04-19 22:08] LABS: MEAN PLATELET VOLUME 10.1 FL (7.4-12.2)
[2017-04-20] MEDS ORDERED: Oxytocin 20 Units + LR 1,000 ML IV SCH (03:00)
[2017-04-20] MEDS: Misoprostol Tab 100 MCG TAB VAGINAL SCH ×3 (07:06→19:03)
[2017-04-20] MEDS: Lactated Ringers-OB Dept 1,000 ML PRIMARY IV SCH ×2 (11:09→15:31)
--- NOTE | 2017-04-20 15:18 | DI ---
US OB , LIMITED,04/17/2017 10:15 AM: Clinical History: Hypertension Previous Exam: April 10, 2017 Findings: Multiple grayscale and color Doppler sonographic images are obtained through the pelvis demonstrating a normal appearing cervix which is long and closed and measures 4.1 cm in length. Amniotic fluid index is obtained measuring 15.5 cm. Estimated gestational age was determined by a composite of biparietal diameter, head circumference, a bdominal circumference and femur length yielding an estimated gestational age mild of 40 weeks 5 days . Estimated weight is 4242 g corresponding with the 97th percentile. The abdominal circumference measures at greater than the 98th percentile. Detected Doppler heart tones measure 165 beats per minute. Impression: 1. Single live intrauterine gestation with estimated gestational age above dates (40 weeks 5 days). 2. Normal amniotic fluid index (15.5 cm).
--- NOTE | 2017-04-20 18:41 | OB.PROGRES ---
Date and Time of Service: 04/20/17 @ 5104 Interval History: Pt is a 26 yo G1 at 39 1/7 weeks by early u/s who presented yesterday for cervical ripening secondary to mild pre-eclampsia. She received cytotec overnoc and is having increasingly painful uterine contractions. She denies vag bleeding or gushes of fluid. Baby has been moving around normally. Denies TARIQ, vision changes or RUQ pain. Objective - Cervical Exam Cervical Exam: -/-2 [place]: irregular contractions, palpating mild Heart Rate: 140s baseline, moderate variability, + accels. Heart Rate Interpretation Category: Category I - Labs CBC and BMP: 04/19/17 20:33 04/19/17 21:35 Labs - Last 24 Hours: Laboratory Results 04/19/17 04/19/17 Range/Units 20:33 21:35 WBC 13.84 H (4.8-10.8) 10^3/uL RBC 4.12 L (4.20-5.40) 10^6/uL Hgb 12.1 (12.0-16.0) g/dL Hct 35.9 L (37.0-47.0) % MCV 87.1 (81-99) FL MCH 29.4 (27-31) PG MCHC 33.7 (33-37) g/dL RDW Std Deviation 41.6 (39-50) fL RDW Coeff of Catherine 13.5 (11.5-14.5) % Plt Count 335 (140-350) 10*3/uL MPV 10.1 (7.4-12.2) FL Sodium 137 (135-145) meq/L Potassium 3.9 (3.8-5.2) meq/L Chloride 108 (98-112) meq/L Carbon Dioxide 17 L (23-33) meq/L Anion Gap 12 (5-20) BUN 14 (7-22) mg/dL Creatinine 0.8 (0.50-1.20) mg/dL Estimated GFR > 60 (>60 ml/min/1.73m(2)) BUN/Creatinine Ratio 17.50 (6-20) Glucose 84 (78-110) mg/dL Calculated Osmolality 283.0 (267-292) mOsm/kg Uric Acid 4.9 (2.5-6.2) mg/dl Calcium 9.2 (8.7-10.7) mg/dL Total Bilirubin 0.4 D (0.3-1.2) mg/dL AST 24 (8-39) IU/L ALT 25 (9-52) IU/L Alkaline Phosphatase 178 H (38-126) IU/L Lactate Dehydrogenase 567 (313-618) IU/L Total Protein 6.2 (6.1-8.0) g/dL Albumin 3.5 (3.5-4.8) g/dL Globulin 2.7 (2.50-4.10) g/dL Albumin/Globulin Ratio 1.20 L (1.3-2.0) mg/g - Vital Signs Last Taken Vital Signs: Vital Signs - Last Taken Temperature 98.2 F 04/20/17 16:30 Pulse Rate 87 04/20/17 16:30 Respiratory Rate 16 04/20/17 16:30 Blood Pressure 143/82 04/20/17 16:30 Pulse Ox 98 04/20/17 16:30 Assessment and Plan - Patient Problems (1) Mild pre-eclampsia affecting first Current Visit: Yes Status: Acute - Assessment / Plan Additional Assessment/Plan Details: -continue cervical ripening with cytotec as contraction pattern allows. -GBS negative. -no pain meds needed currently; may want an epidural later. -continue expectant management.
--- NOTE | 2017-04-20 18:50 | OB.PROGRES ---
Date and Time of Service: 04/20/17 @ 1818 Interval History: Pt denying much pain, but is getting frustrated with not making more progress. She is hungry and very tired. No other complaints. Objective - Cervical Exam [place]: mild irregular contractions Heart Rate: 140s, occasional tiny variables, moderate variability Heart Rate Interpretation Category: Category I - Labs CBC and BMP: 04/19/17 20:33 04/19/17 21:35 Labs - Last 24 Hours: Laboratory Results 04/19/17 04/19/17 Range/Units 20:33 21:35 WBC 13.84 H (4.8-10.8) 10^3/uL RBC 4.12 L (4.20-5.40) 10^6/uL Hgb 12.1 (12.0-16.0) g/dL Hct 35.9 L (37.0-47.0) % MCV 87.1 (81-99) FL MCH 29.4 (27-31) PG MCHC 33.7 (33-37) g/dL RDW Std Deviation 41.6 (39-50) fL RDW Coeff of Catherine 13.5 (11.5-14.5) % Plt Count 335 (140-350) 10*3/uL MPV 10.1 (7.4-12.2) FL Sodium 137 (135-145) meq/L Potassium 3.9 (3.8-5.2) meq/L Chloride 108 (98-112) meq/L Carbon Dioxide 17 L (23-33) meq/L Anion Gap 12 (5-20) BUN 14 (7-22) mg/dL Creatinine 0.8 (0.50-1.20) mg/dL Estimated GFR > 60 (>60 ml/min/1.73m(2)) BUN/Creatinine Ratio 17.50 (6-20) Glucose 84 (78-110) mg/dL Calculated Osmolality 283.0 (267-292) mOsm/kg Uric Acid 4.9 (2.5-6.2) mg/dl Calcium 9.2 (8.7-10.7) mg/dL Total Bilirubin 0.4 D (0.3-1.2) mg/dL AST 24 (8-39) IU/L ALT 25 (9-52) IU/L Alkaline Phosphatase 178 H (38-126) IU/L Lactate Dehydrogenase 567 (313-618) IU/L Total Protein 6.2 (6.1-8.0) g/dL Albumin 3.5 (3.5-4.8) g/dL Globulin 2.7 (2.50-4.10) g/dL Albumin/Globulin Ratio 1.20 L (1.3-2.0) mg/g - Vital Signs Last Taken Vital Signs: Vital Signs - Last Taken Temperature 98.2 F 04/20/17 16:30 Pulse Rate 87 04/20/17 16:30 Respiratory Rate 16 04/20/17 16:30 Blood Pressure 143/82 04/20/17 16:30 Pulse Ox 98 04/20/17 16:30 Assessment and Plan - Patient Problems (1) Mild pre-eclampsia affecting first Current Visit: Yes Status: Acute - Assessment / Plan Additional Assessment/Plan Details: -cervical ripening process proceeding very slowly. Discussed with pt, will allow her to eat and sleep tomorrow and then start augmentation again in the morning. -allow pt to eat a regular diet tonight. -GBS negative. -discussed that the ripening process can take days sometimes, so encouraged her to be as patient as possible, she agrees! -expectant management.
[2017-04-21] MEDS ORDERED: MORPHINE SULFATE/PF 10 MG/10 ML AMPULE ONE (05:25)
[2017-04-21] MEDS ORDERED: ePHEDrine Inj 50 MG/ML AMP ONE ×2 (05:57→09:26)
[2017-04-21] MEDS: Lactated Ringers-OB Dept 1,000 ML PRIMARY IV SCH ×2 (06:07→23:19)
[2017-04-21] MEDS ORDERED: KETOROLAC 30 MG/1 ML VIAL ONE ×2 (06:13→10:26)
[2017-04-21] MEDS: Nalbuphine Inj 20 MG/ML Ampule IVP PRN ×2 (06:17→07:29)
[2017-04-21 08:58] LABS: HEMATOCRIT 34.4 % (37.0-47.0); HEMOGLOBIN 11.4 g/dL (12.0-16.0); MEAN CORPUSCULAR HGB CONC 33.1 g/dL (33-37); MEAN CORPUSCULAR VOLUME 87.5 FL (81-99); RED BLOOD COUNT 3.93 10^6/uL (4.20-5.40)
[2017-04-21] MEDS ORDERED: fentaNYL Inj 100 MCG/2 ML VIAL ONE (09:06)
[2017-04-21] MEDS ORDERED: Sodium Chloride 0.9% vial 10 ML ONE (09:26)
[2017-04-21] MEDS ORDERED: ONDANSETRON 4 MG/2 ML VIAL ONE (10:06)
[2017-04-21] MEDS ORDERED: HYDROmorphone 2 MG/1 ML IVP PRN (10:33)
[2017-04-21] MEDS ORDERED: NORMAL SALINE 10 ML SYRINGE FLUSH IVP PRN (10:33)
--- NOTE | 2017-04-21 10:35 | CRNA.PROCE ---
Central Neuraxis Block Placemt - - Type of Block: Subarachnoid Reason for Block: Surgical Moniters Used During Block: EKG, SPO2, NIBP Skin Prep Used: ChloroPrep Skin Infiltration - Enter Amount Used in Comment Field: 1% Xylocaine (mL): Yes ( skin wheal ) Spinal Needle Used: 25 Alfredo 80 mm Local Anesthetic - Enter Amount Used in Comment Field: 0.75 % Bupivacaine with Dextrose (ml): Yes (15mg) Additive Used - Enter Amount Used in Comment Field: Fentanyl (mcg): Yes (15mcg)
--- NOTE | 2017-04-21 10:41 | OB.PROGRES ---
Date and Time of Service: 04/21/17 @0845 Interval History: Pt continues to have increased abdominal pressure that is unrelated to contractions-this developed overnoc. An IUPC was placed to ensure that intrauterine pressures weren't too high. These were normal. She was able to get some sleep overnoc. Still feeling her contractions, but not as strong. Leaking some fluid. No vaginal bleeding. Objective - Cervical Exam Cervical Exam: -/- [place]: every 2-3 minutes, palpating mild at this time Heart Rate: 140s, moderate variability. - Labs CBC and BMP: 04/21/17 08:52 04/19/17 21:35 Labs - Last 24 Hours: Laboratory Results 04/21/17 Range/Units 08:52 WBC 13.12 H (4.8-10.8) 10^3/uL RBC 3.93 L (4.20-5.40) 10^6/uL Hgb 11.4 L (12.0-16.0) g/dL Hct 34.4 L (37.0-47.0) % MCV 87.5 (81-99) FL MCH 29.0 (27-31) PG MCHC 33.1 (33-37) g/dL RDW Std Deviation 42.1 (39-50) fL RDW Coeff of Catherine 13.7 (11.5-14.5) % Plt Count 282 (140-350) 10*3/uL MPV 10.0 (7.4-12.2) FL Blood Type O POSITIVE Antibody Screen Negative - Vital Signs Last Taken Vital Signs: Vital Signs - Last Taken Temperature 97.6 F 04/21/17 10:26 Pulse Rate 80 04/21/17 10:26 Respiratory Rate 14 04/21/17 10:26 Blood Pressure 144/83 04/21/17 10:26 Pulse Ox 95 04/21/17 07:00 Assessment and Plan - Patient Problems (1) Mild pre-eclampsia affecting first Current Visit: Yes Status: Acute - Assessment / Plan Additional Assessment/Plan Details: -discussed with pt in detail--I think there are 2 options at this time. Either we can start some pitocin and continue to monitor closely, or we can proceed with primary section for failure to progress since the pt has not change her cervix in >24 hours. Pt requests primary at this time. Reviewed the risks and benefits of this with the pt, including risk of bleeding , infection, injury to things in the area (bowel, bladder, the baby, ureters, etc). I also told her that she would likely be advised to have a repeat due to the circumstances around her current delivery. She is in agreement with the plan. The OR crew has been notified. Consents have been signed. We will proceed to the OR as soon as the OR crew is ready.
[2017-04-21] MEDS ORDERED: Lactated Ringers 1,000 ML PRIMARY IV SCH (10:45)
--- NOTE | 2017-04-21 11:44 | OB.OP.NOTE ---
Operative Report - - Surgeon: Mat Sanz MD Bulb Packer: Ap Arreaga MD Anesthesia Type: Regional Anesthesia Provider: Jack Riojas CRNA Surgery Date: 04/21/17 Preoperative Diagnosis: Term . Induction secondary to mild pre- eclampsia. Cephalopelvic disproportion Postoperative Diagnosis: same, delivered Procedure: Primary section Complications: none Estimated Blood Loss (mL): 600 Urine Output (mL): 150 Fluids: 1300 cc LR Indications: Pt is a 26 yo G1 at 39 3/7 weeks by early u/s who presented 2 days ago for induction secondary to mild pre-eclampsia. She received a total of 3 doses of cytotec and had regular, painful contractions, but had no cervical change despite multiple interventions. On the day of delivery, she was given the option to augment her contractions further with pitocin or proceed to primary section due to failure to progress/descend and she requested primary section. Findings: viable male infant, in cephalic presentation, clear amniotic fluid. OP presentation. Description of Procedure: The patient was taken to the operating room where spinal anesthesia was found to be adequate. She was then prepared and draped in the normal sterile fashion in the dorsal supine position with a leftward tilt. A Pfannenstiel skin incision was then made with the scalpel and carried through to the underlying layer of fascia with the Bovie. The fascia was incised in the midline and the incision extended laterally with the Bovie. The superior aspect of the fascial incision was then grasped with Elizabeth clamps, elevated, and the underlying rectus muscles dissected off bluntly. Attention was then turned to the inferior aspect of this incision which, in a similar fashion, was grasped with Elizabeth clamps and the rectus muscles dissected off both bluntly and with the Bovie. The rectus muscles were then in the midline, and the peritoneum identified, tented up, and entered in a blunt fashion. The peritoneal incision was then extended superiorly and inferiorly with good visualization of the bladder. The Shoaib retractor was then inserted and the vesicouterine peritoneum was identified. The lower uterine segment incised in a transverse fashion with the scalpel. The uterine incision was then extended laterally in a blunt fashion. The infant's head was delivered atraumatically. The nose and mouth were suctioned with the bulb suction and the cord clamped and cut. The infant was handed off to the awaiting nurse. Cord gases and cord blood were sent for analysis. The placenta was then removed manually; the uterus exteriorized, and cleared of all clots and debris. The uterine incision was repaired with 0 Vicryl in a running, locked fashion. A second layer of the same suture was used to obtain excellent hemostasis. The peritoneal cavity was then copiously irrigated with warm saline. The uterus was returned to the abdomen. The paracolic gutters were copiously irrigated with warm saline and a second look at the uterine incision continued to reveal excellent hemostasis. The peritoneum was closed with 3-0 Vicryl. The fascia reapproximated with 0 vicryl in a running fashion. The subcutaneous space was irrigated copiously with warm saline and then closed first with 3-0 Vicryl rapide and then more superficially with Insorb absorbable sutures. The skin was reapproximated with Steri-Strips and a Silverlon dressing applied. Fundal massage was completed with no clots in the vaginal vault. The patient tolerated the procedure well. Sponge, lap, and needle counts were correct x2. Mefoxin was given preoperatively less than one hour prior to incision time. The patient was taken to the recovery room in stable condition. Patient Problems - Patient Problem List (1) Mild pre-eclampsia affecting first Current Visit: Yes Status: Acute
[2017-04-21] MEDS: D5-LR 1,000 ML PRIMARY IV SCH (12:00)
[2017-04-21] MEDS ORDERED: Naloxone Inj 0.01 MG, Sodium Chloride 0.9% vial 1 ML IVP PRN ×2 (13:22)
[2017-04-21] MEDS ORDERED: OXYTOCIN 10 UNIT/1 ML IM ONE (13:22)
[2017-04-21] MEDS ORDERED: LANOLIN HPA 40 GM TUBE TOPICAL PRN (13:22)
[2017-04-21] MEDS ORDERED: Nalbuphine Inj 20 MG/ML Ampule IVP PRN (13:22)
[2017-04-21] MEDS ORDERED: MISOPROSTOL 200 MCG TABLET RECTAL ONE (13:22)
[2017-04-21] MEDS ORDERED: DIPH,PERTUSS,TET(ADACEL) VAC/PF 0.5 ML (Tdap) IM SCH (13:22)
[2017-04-21] MEDS ORDERED: Famotidine Inj 20 MG in Normal Saline Flush 10 ML IVP PRN (13:22)
[2017-04-21] MEDS ORDERED: ONDANSETRON 4 MG/2 ML VIAL IVP PRN (13:22)
[2017-04-21] MEDS ORDERED: METHYLERGONOVINE MALEATE 0.2 MG/1 ML VIAL IM PRN (13:22)
[2017-04-21] MEDS ORDERED: diphenhydrAMINE 50 MG/1 ML VIAL IV PRN (13:22)
[2017-04-21] MEDS ORDERED: Oxytocin 20 Units + LR 1,000 ML IV SCH (13:22)
[2017-04-21] MEDS ORDERED: Carboprost Inj 250 MCG/ML AMP IM PRN (13:22)
[2017-04-21] MEDS ORDERED: diphenhydrAMINE 25 MG CAPSULE PO PRN (13:22)
[2017-04-21] MEDS ORDERED: HYDROmorphone 2 MG/1 ML IV PRN (13:22)
[2017-04-21] MEDS ORDERED: Methylergonovine Tab 0.2 MG TAB PO PRN (13:22)
[2017-04-21] MEDS ORDERED: CALCIUM CARBONATE 500 MG (TUMS) CHEWABLE TABLET PO PRN (13:22)
[2017-04-21] MEDS: KETOROLAC 15 MG/1 ML VIAL IVP PRN (18:10)
[2017-04-21] MEDS: oxyCODONE-ACETAMINOPHEN 5-325 TAB PO PRN ×2 (19:34→23:10)
[2017-04-22] MEDS: KETOROLAC 15 MG/1 ML VIAL IVP PRN ×2 (01:18→08:18)
[2017-04-22] MEDS: NORMAL SALINE 10 ML SYRINGE FLUSH IVP PRN ×2 (01:18→08:19)
[2017-04-22] MEDS: oxyCODONE-ACETAMINOPHEN 5-325 TAB PO PRN ×5 (05:00→20:53)
[2017-04-22 05:47] LABS: HEMATOCRIT 29.1 % (37.0-47.0); HEMOGLOBIN 9.3 g/dL (12.0-16.0); MEAN CORPUSCULAR HEMOGLOBIN 28.6 PG (27-31); MEAN CORPUSCULAR VOLUME 89.5 FL (81-99); MEAN PLATELET VOLUME 10.1 FL (7.4-12.2); RED BLOOD COUNT 3.25 10^6/uL (4.20-5.40)
[2017-04-22 06:01] LABS: BLOOD UREA NITROGEN 11 mg/dL (7-22); BUN/CREATININE RATIO 12.22 (6-20); EST GLOMERULAR FILTRATION > 60 (>60 ml/min/1.73m(2)); SERUM ALBUMIN 2.4 g/dL (3.5-4.8)
[2017-04-22] MEDS: Prenatal Multivitamin Tab 1 TAB TAB PO SCH (08:19)
[2017-04-22] MEDS: Senna/Docusate Tab 1 TAB TAB PO SCH ×2 (08:19→20:53)
--- NOTE | 2017-04-22 11:24 | CRNA.PROGR ---
Anesthesia Note Anesthesia Progress Note: Sitting up in bed visiting with family. Has been ambulatory ad jody. She has no questions or concerns regarding her anesthetic course of care. Laboratory Results 04/19/17 04/19/17 04/21/17 Range/Units 20:33 21:35 08:52 WBC 13.84 H 13.12 H (4.8-10.8) 10^3/uL RBC 4.12 L 3.93 L (4.20-5.40) 10^6/uL Hgb 12.1 11.4 L (12.0-16.0) g/dL Hct 35.9 L 34.4 L (37.0-47.0) % MCV 87.1 87.5 (81-99) FL MCH 29.4 29.0 (27-31) PG MCHC 33.7 33.1 (33-37) g/dL RDW Std Deviation 41.6 42.1 (39-50) fL RDW Coeff of Catherine 13.5 13.7 (11.5-14.5) % Plt Count 335 282 (140-350) 10*3/uL MPV 10.1 10.0 (7.4-12.2) FL Sodium 137 (135-145) meq/L Potassium 3.9 (3.8-5.2) meq/L Chloride 108 (98-112) meq/L Carbon Dioxide 17 L (23-33) meq/L Anion Gap 12 (5-20) BUN 14 (7-22) mg/dL Creatinine 0.8 (0.50-1.20) mg/dL Estimated GFR > 60 (>60 ml/min/1.73m(2)) BUN/Creatinine Ratio 17.50 (6-20) Glucose 84 (78-110) mg/dL Calculated Osmolality 283.0 (267-292) mOsm/kg Uric Acid 4.9 (2.5-6.2) mg/dl Calcium 9.2 (8.7-10.7) mg/dL Total Bilirubin 0.4 D (0.3-1.2) mg/dL AST 24 (8-39) IU/L ALT 25 (9-52) IU/L Alkaline Phosphatase 178 H (38-126) IU/L Lactate Dehydrogenase 567 (313-618) IU/L Total Protein 6.2 (6.1-8.0) g/dL Albumin 3.5 (3.5-4.8) g/dL Globulin 2.7 (2.50-4.10) g/dL Albumin/Globulin Ratio 1.20 L (1.3-2.0) mg/g Blood Type O POSITIVE Antibody Screen Negative 04/22/17 Range/Units 05:23 WBC 11.13 H (4.8-10.8) 10^3/uL RBC 3.25 L (4.20-5.40) 10^6/uL Hgb 9.3 L (12.0-16.0) g/dL Hct 29.1 L (37.0-47.0) % MCV 89.5 (81-99) FL MCH 28.6 (27-31) PG MCHC 32.0 L (33-37) g/dL RDW Std Deviation 42.6 (39-50) fL RDW Coeff of Catherine 13.8 (11.5-14.5) % Plt Count 231 (140-350) 10*3/uL MPV 10.1 (7.4-12.2) FL Sodium 135 (135-145) meq/L Potassium 3.9 (3.8-5.2) meq/L Chloride 107 (98-112) meq/L Carbon Dioxide 23 (23-33) meq/L Anion Gap 5 (5-20) BUN 11 (7-22) mg/dL Creatinine 0.9 (0.50-1.20) mg/dL Estimated GFR > 60 (>60 ml/min/1.73m(2)) BUN/Creatinine Ratio 12.22 (6-20) Glucose 75 L (78-110) mg/dL Calculated Osmolality 277.0 (267-292) mOsm/kg Uric Acid 6.0 (2.5-6.2) mg/dl Calcium 8.0 L (8.7-10.7) mg/dL Total Bilirubin 0.2 L (0.3-1.2) mg/dL AST 25 (8-39) IU/L ALT 23 (9-52) IU/L Alkaline Phosphatase 114 (38-126) IU/L Lactate Dehydrogenase 573 (313-618) IU/L Total Protein 4.6 L (6.1-8.0) g/dL Albumin 2.4 L (3.5-4.8) g/dL Globulin 2.2 L (2.50-4.10) g/dL Albumin/Globulin Ratio 1.00 L (1.3-2.0) mg/g Blood Type Antibody Screen Vital Signs (Last 8 hours) Temp Pulse Resp BP Pulse Ox 04/22/17 10:58 98.2 F 90 20 125/64 97 04/22/17 05:00 97.8 F 61 18 113/70 99
[2017-04-22] MEDS: D5-LR 1,000 ML PRIMARY IV SCH ×3 (13:02→22:59)
[2017-04-22] MEDS: IBUPROFEN 800 MG TABLET PO PRN (19:21)
[2017-04-22] MEDS: FERROUS GLUCONATE 324 MG TABLET PO SCH (20:53)
[2017-04-23] MEDS: oxyCODONE-ACETAMINOPHEN 5-325 TAB PO PRN ×3 (01:12→09:22)
[2017-04-23] MEDS: IBUPROFEN 800 MG TABLET PO PRN (05:08)
[2017-04-23] MEDS: Prenatal Multivitamin Tab 1 TAB TAB PO SCH (08:42)
[2017-04-23] MEDS: FERROUS GLUCONATE 324 MG TABLET PO SCH (08:42)
[2017-04-23] MEDS: Senna/Docusate Tab 1 TAB TAB PO SCH (08:42)
[2017-04-23 10:50] VITALS: RESP 16; TEMP 97.9
--- NOTE | 2017-04-26 14:29 | OB.PROGRES ---
Subjective Post Op Day: 1 Pain Management: PO Rubio Catheter: Yes Flatus: Yes Diet: Regular Feeding Method: Exculsively Ambulating: Yes Concerns / Additional Information: Feeling pretty sore, but overall better than yesterday morning. Tolerating regular diet. Planning to get up to shower today and will change dressing and get rubio out at that point. Denies TARIQ, RUQ pain, increased edema or vision changes. Objective - General General Appearance: POSITIVE: No Acute Distress, Cooperative - Cardiovacular Cardiovascular Exam: POSITIVE: RRR, No Murmur Edema: +2 Pedal Edema Extremities: Negative Jim's - Bilaterally - Respiratory Respiratory Exam: POSITIVE: Clear to Auscultation - Bilaterally, Breathing Non Labored - Abdomen Bowel Sounds: Hypoactive Abdominal Wound Assessment: Silverlone Dressing Assesstment / Plan (1) Mild pre-eclampsia affecting first Status: Acute (2) Status post primary low transverse section Status: Acute Assessment / Plan: -routine cares. -gest HTN panel today was reassuring. Currently no sx of pre-eclampsia, so magnesium sulfate was not initiated. -rubella immune. -rh positive. -breast feeding coming along. -d/c home in 1-2 days.
--- NOTE | 2017-04-26 14:35 | DCSUMMARY ---
Hospitalization Summary Admit Date: 04/19/17 Discharge Date: 04/23/17 Primary Diagnosis:: Mild pre-eclampsia Secondary Diagnosis:: Mild pre-eclampsia, normotensive during hospital stay. Did not require magnesium sulfate during her hospital stay, due to insignificant proteinuria and no symptoms. Failure to progress despite augmentation with cytotec x 3 doses and low-dose pitocin. Pt was taken for primary section per her request Primary Surgery and Date: Primary section on April 21, 2017. Delivery Type: Hospital Course: Pt was admitted for induction at 39 weeks due to mild pre-eclampsia with blood pressures in the 140s/90s with a 24 hour urine protein of 721mg several weeks ago. She received 3 doses of cytotec and low dose pitocin for a short period of time with minimal to no cervical change or change in consistency to the pt's cervix. Her cervix was 1-2/60/-2 for greater than 24 hours of time despite painful, strong contractions and SROM on April 21 in the evening. An IUPC was inserted, which showed frequent contractions that were 1-2 minutes in length. Pt was noted to have a small pelvic outlet. On day 2 of her ripening, I discussed the above with the pt. I gave her the choice of increasing the pitocin or proceeding to a primary section. She requested section. For details of the operation, please see operative report elsewhere in the chart. / Postop Complications: The pt had a normal post-operative course. As noted before, she did not receive mag sulfate post-op due to no proteinuria and normotensive state. Complications: Baby had no respiratory or temperature issues. He did, however, have some mild hypoglycemia, which didn't respond to oral feedings and [id number] time. He was started on D10 per IV and this was titrated off at 24 hours of age. Otherwise, he had no significant issues. Exam - Vitals Vital Signs: Vital Signs Temperature 97.9 F Temperature Source Oral Pulse Rate [Apical] 74 Pulse Rate [Pulse Oximeter] 74 Pulse Rate 70 Respiratory Rate 16 Blood Pressure [Right Arm] 127/66 Blood Pressure [Left Arm] 142/85 Blood Pressure 128/75 Pulse Ox 99 Oxygen Delivery Method Room Air Height 27 in Weight 210 lb 3.2 oz - General General Appearance: POSITIVE: No Acute Distress, Cooperative - Head Head Exam: POSITIVE: Normal Inspection - Neck Neck Exam: POSITIVE: Normal Inspection - Respiratory Respiratory Exam: POSITIVE: Clear to Auscultation - Bilaterally, Breathing Non Labored - Cardiovascular Cardiovascular Exam: POSITIVE: RRR, No Murmur - GI/Abdominal GI/Abdominal Exam: POSITIVE: Non Tender, Non Distended, Soft, Hypoactive Bowel Sounds - Extremities Extremities Exam: POSITIVE: Normal Capillary Refill, +2 Edema - Neurological Neurological Exam: POSITIVE: Alert, Oriented x 3 - Psychiatric Psychiatric Exam: POSITIVE: Normal Affect, Normal Mood - Integumentary Integumentary Exam: POSITIVE: Normal Color, Warm, Dry Patient Problems - Patient Problem List (1) Mild pre-eclampsia affecting first Status: Acute (2) Status post primary low transverse section Status: Acute
== END 2017-04-23 13:48 | disposition home or self-care (01) | DRG 766 ==
LOC: OBIP 20:00
PROVIDERS: ADMIT Family Medicine; ATTEND Family Medicine
PROC: 3E033VJ Introduction of Other Hormone into Peripheral Vein, Percutaneous Approach (ICD-10-PCS; 2017-04-19)
PROC: 10D00Z1 Extraction of Products of Conception, Low, Open Approach (ICD-10-PCS; principal; 2017-04-21 09:30)
DX: O33.9 Maternal care for disproportion, unspecified (principal); O14.04 Mild to moderate pre-eclampsia, complicating childbirth; Z3A.39 39 weeks gestation of pregnancy; Z37.0 Single live birth
CPT/HCPCS: 36415; 76815; 80053; 81003; 83615; 84550; 85025; 85027; 86850; 86900; 86901; 94150; 94761; A4216; J1885; J2210; J2405; J2765; J3010; J3105; J7050; J7120

== ENCOUNTER 2019-02-07 07:58 | Inpatient (IN) ==
[2019-02-07 10:14] LABS: Hematocrit [HCT] 40.7 % (37.0-47.0); Hemoglobin [HGB] 13.8 g/dL (12.0-16.0); MEAN CORPUSCULAR HEMOGLOBIN 31.2 PG (27-31); MEAN CORPUSCULAR HGB CONC 33.9 g/dL (33-37); MEAN CORPUSCULAR VOLUME 91.9 FL (81-99); MEAN PLATELET VOLUME 10.6 FL (7.4-12.2); RED BLOOD COUNT 4.43 10^6/uL (4.20-5.40)
[2019-02-07 10:28] LABS: BLOOD UREA NITROGEN 9 mg/dL (7-22); SERUM ALBUMIN 3.7 g/dL (3.5-4.8); Uric Acid 4.6 mg/dl (2.5-6.2)
[2019-02-07] MEDS ORDERED: LIDOCAINE W/ SODIUM BICARB 0.5 ML SYR SUBD PRN (11:17)
[2019-02-07] MEDS ORDERED: CefOXitin Inj 2 GM in Sodium Chloride 0.9% 100 ML IV ONE (11:17)
[2019-02-07] MEDS ORDERED: CITRIC ACID/SODIUM CITRATE 30 ML CUP PO ONE (11:17)
[2019-02-07] MEDS ORDERED: Lactated Ringers 1,000 ML PRIMARY IV ONE (11:17)
[2019-02-07] MEDS ORDERED: LIDOCAINE HCL 2 % 10 ML JELLY URO-JECT TOPICAL PRN (11:17)
[2019-02-07] MEDS ORDERED: FAMOTIDINE 20 MG/2 ML VIAL IVP ONE (11:17)
[2019-02-07] MEDS ORDERED: Metoclopramide Inj 10 MG/2 ML VIAL IV ONE (11:17)
[2019-02-07] MEDS ORDERED: Lactated Ringers 1,000 ML PRIMARY IV SCH (11:30)
[2019-02-07] MEDS ORDERED: Oxytocin 20 Units + LR 20 UNIT/1,000 ML BAG IV SCH ×2 (11:30→14:36)
[2019-02-07] MEDS ORDERED: Oxytocin 20 Units + LR 20 UNIT/1,000 ML BAG IV ONE (12:01)
[2019-02-07] MEDS ORDERED: ePHEDrine Inj 50 MG/ML AMP ONE (12:09)
[2019-02-07] MEDS ORDERED: PHENYLEPHRINE 10,000 MCG/1 ML VIAL ONE (12:18)
--- NOTE | 2019-02-07 14:35 | CRNA.PROCE ---
Central Neuraxis Block Placemt - - Safety Measures: Time Out Taken - - Type of Block: Subarachnoid Reason for Block: Surgical Moniters Used During Block: EKG, SPO2, NIBP Positioning: Sitting Skin Prep Used: ChloroPrep Draped: Yes Skin Infiltration - Enter Amount Used in Comment Field: 1% Xylocaine (mL): Yes (1.5) Spinal Needle Used: 22 Alfredo 80 mm (1 Dural puncture) Local Anesthetic - Enter Amount Used in Comment Field: 0.75 % Bupivacaine with Dextrose (ml): Yes (1.8 ml) Bioclusive Dressing Applied: No - - Additional Details: SAB placed. Positioned tilted Left. Prepped draped start. Pt reports comfort.
[2019-02-07] MEDS ORDERED: BUTORPHANOL TARTRATE 2 MG/1 ML VIAL IVP PRN (14:36)
[2019-02-07] MEDS ORDERED: LANOLIN HPA 40 GM TUBE TOPICAL PRN (14:36)
[2019-02-07] MEDS ORDERED: ONDANSETRON 4 MG/2 ML VIAL IVP PRN (14:36)
[2019-02-07] MEDS ORDERED: diphenhydrAMINE 25 MG CAPSULE PO PRN (14:36)
[2019-02-07] MEDS ORDERED: Nalbuphine Inj 20 MG/ML Ampule IVP PRN (14:36)
[2019-02-07] MEDS ORDERED: FAMOTIDINE 20 MG/2 ML VIAL IVP PRN (14:36)
[2019-02-07] MEDS ORDERED: DIPH,PERTUSS,TET(ADACEL) VAC/PF 0.5 ML (Tdap) IM ONE (14:36)
[2019-02-07] MEDS ORDERED: D5-LR 1,000 ML PRIMARY IV SCH (14:36)
[2019-02-07] MEDS ORDERED: diphenhydrAMINE 50 MG/1 ML VIAL IV PRN (14:36)
[2019-02-07] MEDS ORDERED: CALCIUM CARBONATE 500 MG (TUMS) CHEWABLE TABLET PO PRN (14:36)
[2019-02-07] MEDS ORDERED: Naloxone Inj 0.01 MG, Sodium Chloride 0.9% vial 1 ML IVP PRN ×2 (14:36)
[2019-02-07] MEDS ORDERED: HYDROmorphone 2 MG/1 ML IV PRN (14:36)
--- NOTE | 2019-02-07 14:55 | CRNA.PROGR ---
Anesthesia Time - Procedure/Recovery Time Start Date: 02/07/19 End Date: 02/07/19 Anesthesia : Time In: 12:42 Anesthesia : Time Out: 13:35 Anesthesia : Total Time: 53 - Total Anesthesia Time Total Anesthesia Time (minutes): 53 - Other Weight: 94.71 kg Height: 5 ft 5 in Body Mass Index (BMI): 34.7 Physical Status: P2 Anesthesia Type: Spinal Block
[2019-02-07] MEDS: oxyCODONE-ACETAMINOPHEN 5-325 TAB PO PRN ×3 (14:56→23:52)
[2019-02-07] MEDS: KETOROLAC 15 MG/1 ML VIAL IVP SCH ×2 (14:56→21:13)
--- NOTE | 2019-02-07 15:08 | CRNA.PROGR ---
Anesthesia Recovery Phase I - Post Anesthesia Evaluation Patient's Condition on Arrival in Phase I: Stable Patient's Condition on Arrival in Phase II: Stable (medicated) Pain Level: 7
--- NOTE | 2019-02-07 16:20 | OB.PROGRES ---
Date of Service: 02/07/19 Time of Service: 11:30 Interval History: Pt is a 28 yo at 37 1/7 weeks by first trimester u/s who presented today for her routine monitoring secondary to pre-eclampsia. She denies any sx of pre-eclampsia--including TARIQ, RUQ pain, edema or vision changes. She does note that she has been kasi off and on, mostly on starting yesterday. She states now that the contractions are uncomfortable and she notices them more than she has in the past. She denies any vaginal bleeding of gushes of fluid. Baby has been moving around maybe less than his usual. No other complaints today . Objective - Cervical Exam Cervical Exam: FT/anterior/soft per RN [place]: every 2 minutes Heart Rate: 130s, no decels, moderate variability. Heart Rate Interpretation Category: Category I - Labs CBC and BMP: 02/07/19 10:10 02/07/19 10:10 - Vital Signs Last Taken Vital Signs: Vital Signs - Last Taken Temperature 97.7 F 02/07/19 14:15 Pulse Rate 81 02/07/19 14:25 Respiratory Rate 15 02/07/19 14:25 Blood Pressure 124/71 02/07/19 14:25 Pulse Ox 100 02/07/19 14:25 Assessment and Plan - Patient Problems (1) Pre-eclampsia Current Visit: No Status: Acute Code(s): O14.90 - Unspecified pre-eclampsia, unspecified trimester Qualifiers: (2) Labor, prolonged latent phase Current Visit: Yes Status: Acute Code(s): O62.0 - Primary inadequate contractions - Assessment / Plan Additional Assessment/Plan Details: -discussed with pt in detail. She is kasi regularly despite good hydration (sp grav 1.005). It is likely that she is in latent labor. Her labs are normal except for hemoconcentration, indicating that her pre-eclampsia may be progressing. In any case, given her 37 1/7 week gestation, it would not be standard of care to tocolyze. I think it is best to proceed with repeat section at this point. Pt is aware that she has not had celestone. There is the potential for lung and breathing issues. There is also the potential for the baby to need to be transferred to [facility] for a higher level of care. Pt understands the risks of the procedure and the risks to the baby and wishes to proceed. OR crew was notified.
--- NOTE | 2019-02-07 16:44 | OB.OP.NOTE ---
Operative Report Surgeon: Mat Sanz MD Buffer Nickel: Ap Arreaga MD Anesthesia Type: Regional Anesthesia Provider: Stephanie Bliss CRNA Surgery Date: 02/07/19 Preoperative Diagnosis: Latent labor, Pre-eclampsia without severe features, previous section x 1. Postoperative Diagnosis: same, delivered. Procedure: Repeat section Complications: none Estimated Blood Loss (mL): 600 Urine Output (mL): 200 Fluids: 3200 cc LR with 20 mU of pitocin Indications: We do not offer vaginal after section trials at our facility and the patient did not desire this. She is requesting a repeat section. Findings: male in cephalic presentation, clear amniotic fluid. Normal tubes, uterus and ovaries. Description of Procedure: The patient was taken to the operating room where spinal anesthesia was found to be adequate. She was then prepared and draped in the normal sterile fashion in the dorsal supine position with a leftward tilt. A Pfannenstiel skin incision was then made with the scalpel and carried through to the underlying layer of fascia with the Bovie. The fascia was incised in the midline and the incision extended laterally with the Bovie. The superior aspect of the fascial incision was then grasped with the Elizabeth clamps, elevated, and the underlying rectus muscles dissected off bluntly. Attention was then turned to the inferior aspect of this incision which, in a similar fashion, was grasped with the Elizabeth clamps and the rectus muscles dissected off both bluntly and with the Bovie. The rectus muscles were then in the midline, and the peritoneum identified and entered digitally. The peritoneal incision was then extended superiorly and inferiorly with good visualization of the bladder. The Shoaib retractor was then inserted and the vesicouterine peritoneum was identified. The lower uterine segment was incised in a transverse fashion with the scalpel. The uterine incision was then extended laterally in a blunt fashion. The inferior margin of the lower uterine segment was noted to be thin. The infant's head was delivered atraumatically. The nose and mouth were suctioned with the bulb suction and the cord clamped and cut after 45 seconds for delayed cord clamping. The infant was handed off to the awaiting nurse. Cord gases and cord blood were sent for analysis. The placenta was then removed manually; the uterus exteriorized, and cleared of all clots and debris. The uterine incision was repaired with 0 Vicryl in a running, locked fashion. A second layer of the same suture was used to obtain excellent hemostasis. The peritoneal cavity was then copiously irrigated with warm saline. The uterus was returned to the abdomen. The paracolic gutters were copiously irrigated with warm saline and a second look at the uterine incision continued to reveal excellent hemostasis. The peritoneum was closed with 3-0 Vicryl. The fascia reapproximated with 0 Vicryl in a running fashion. The subcutaneous space was irrigated copiously with warm saline and then closed first with 3-0 Vicryl Rapide and then more superficially with Insorb absorbable sutures. The skin was reapproximated with Steri-Strips and a Silverlon dressing applied. Fundal massage was completed with no clots in vaginal vault. The patient tolerated the procedure well. Sponge, lap, and needle counts were correct x2. Mefoxin was given preoperatively less than one hour prior to incision time. The patient was taken to the recovery room in stable condition. Patient Problems - Patient Problem List (1) Pre-eclampsia Current Visit: No Status: Acute Code(s): O14.90 - Unspecified pre-eclampsia, unspecified trimester Qualifiers: Category: Medical (2) Labor, prolonged latent phase Current Visit: Yes Status: Acute Code(s): O62.0 - Primary inadequate contractions Category: Medical
[2019-02-08] MEDS: KETOROLAC 15 MG/1 ML VIAL IVP SCH ×3 (02:36→15:37)
[2019-02-08] MEDS: oxyCODONE-ACETAMINOPHEN 5-325 TAB PO PRN ×4 (04:09→21:44)
[2019-02-08 04:26] LABS: Hematocrit [HCT] 33.5 % (37.0-47.0); Hemoglobin [HGB] 11.1 g/dL (12.0-16.0); MEAN CORPUSCULAR HGB CONC 33.1 g/dL (33-37); MEAN CORPUSCULAR VOLUME 93.6 FL (81-99); MEAN PLATELET VOLUME 10.2 FL (7.4-12.2); RED BLOOD COUNT 3.58 10^6/uL (4.20-5.40)
[2019-02-08 04:34] LABS: BLOOD UREA NITROGEN 7 mg/dL (7-22); SERUM ALBUMIN 2.8 g/dL (3.5-4.8); Uric Acid 4.8 mg/dl (2.5-6.2)
[2019-02-08] MEDS: Prenatal Multivitamin Tab 1 TAB TAB PO SCH (09:27)
[2019-02-08] MEDS: Senna/Docusate Tab 1 TAB TAB PO SCH ×2 (09:27→21:57)
--- NOTE | 2019-02-08 11:12 | CRNA.PROGR ---
Anesthesia Note - Progress Notes Anesthesia Progress Note: patient stable post . Mother/Infant well -- no apparent anesthesia related complication. Follow up PRN at primary care request
--- NOTE | 2019-02-08 13:13 | OB.PROGRES ---
Subjective Post Day: 1 Pain Management: PO Matute Catheter: No Flatus: Yes Lochia Color: Rubra/Red Scant < 10 ml Diet: Regular Feeding Method: Exculsively Ambulating: Yes Concerns / Additional Information: States she feels much better than she did after her last . No complaints. Denies TARIQ, vision changes, RUQ pain. Plans to shower later this morning. Objective - General General Appearance: POSITIVE: No Acute Distress, Cooperative - Cardiovacular Cardiovascular Exam: POSITIVE: RRR, No Murmur Edema: +1 Pedal Edema Extremities: Negative Jim's - Bilaterally - Respiratory Respiratory Exam: POSITIVE: Clear to Auscultation - Bilaterally, Breathing Non Labored - Abdomen Bowel Sounds: Present Abdominal Wound Assessment: Silverlone Dressing Assesstment / Plan (1) Pre-eclampsia Current Visit: No Status: Resolved Qualifiers: (2) Labor, prolonged latent phase Current Visit: Yes Status: Resolved (3) Status post repeat low transverse section Current Visit: Yes Status: Acute Assessment / Plan: -routine postop cares. -working on breast feeding. -rh positive. -rubella immune. -baby is improved and out of the nursery. -possible d/c in 1-2 days.
[2019-02-08] MEDS: IBUPROFEN 800 MG TABLET PO SCH (15:36)
[2019-02-09] MEDS: IBUPROFEN 800 MG TABLET PO SCH ×3 (00:48→15:34)
[2019-02-09] MEDS: oxyCODONE-ACETAMINOPHEN 5-325 TAB PO PRN ×5 (03:30→21:11)
[2019-02-09] MEDS: Prenatal Multivitamin Tab 1 TAB TAB PO SCH (08:30)
[2019-02-09] MEDS: Senna/Docusate Tab 1 TAB TAB PO SCH ×2 (08:30→21:11)
[2019-02-10] MEDS: IBUPROFEN 800 MG TABLET PO SCH ×3 (00:55→15:10)
[2019-02-10] MEDS: oxyCODONE-ACETAMINOPHEN 5-325 TAB PO PRN ×4 (02:13→15:10)
[2019-02-10] MEDS: Senna/Docusate Tab 1 TAB TAB PO SCH (08:48)
[2019-02-10] MEDS: Prenatal Multivitamin Tab 1 TAB TAB PO SCH (08:48)
[2019-02-10 12:31] VITALS: O2SAT 97
[2019-02-10 17:02] VITALS: BP 127/66; RESP 16; TEMP 98.4
--- NOTE | 2019-02-26 21:26 | OB.PROGRES ---
Subjective Post Day: 2 Pain Management: PO Matute Catheter: No Flatus: Yes Lochia Color: Rubra/Red Scant < 10 ml Diet: Regular Feeding Method: Exculsively Ambulating: Yes Objective - General General Appearance: POSITIVE: No Acute Distress, Cooperative - Cardiovacular Cardiovascular Exam: POSITIVE: RRR, No Murmur Edema: +1 Pedal Edema Extremities: Negative Jim's - Bilaterally - Respiratory Respiratory Exam: POSITIVE: Clear to Auscultation - Bilaterally, Breathing Non Labored - Abdomen Bowel Sounds: Present Abdominal Wound Assessment: Silverlone Dressing Assesstment / Plan (1) Pre-eclampsia Status: Resolved Qualifiers: (2) Labor, prolonged latent phase Status: Resolved (3) Status post repeat low transverse section Status: Acute Assessment / Plan: -routine cares. -breast feeding continuing to improve. -rubella immune. -rh positive. -probable d/c home tomorrow.
--- NOTE | 2019-02-26 21:31 | DCSUMMARY ---
Hospitalization Summary Admit Date: 02/07/19 Discharge Date: 02/10/19 Primary Diagnosis:: Latent onset of labor; pre-eclampsia w/o severe symptoms Primary Surgery and Date: Repeat section, 02/07/19. Delivery Type: Hospital Course: Pt was admitted with painful uterine contractions and cervical change. She has a h/o previous section x 1 for failure to progress and an almost 9# baby. Her antepartum testing thus far has been normal. She was taken for repeat section. For details of this operation, please see operative report elsewhere in the chart. / Postop Complications: No complications. Labs were normal post-op. Blood pressures were monitored and she was normotensive. [place] Complications: Baby had moderate respiratory distress which required CPAP x 24 hours as well as hypoglycemia which required IV dextrose. These issues had both resolved by the time of discharge. Exam - Vitals Vital Signs: Vital Signs Temperature 98.4 F Temperature Source Oral Pulse Rate [Pulse Oximeter] 71 Pulse Rate 75 Respiratory Rate 16 Blood Pressure [Left Arm] 119/70 Blood Pressure [Right Arm] 127/66 Blood Pressure 124/71 Pulse Ox 97 Oxygen Flow Rate 0 Oxygen Delivery Method Room Air Height 5 ft 5 in Weight 208 lb 12.8 oz - General General Appearance: No Acute Distress, Cooperative - Head Head Exam: Normal Inspection, Normocephalic - Respiratory Respiratory Exam: POSITIVE: Clear to Auscultation - Bilaterally, Breathing Non Labored - Cardiovascular Cardiovascular Exam: POSITIVE: RRR, No Murmur - GI/Abdominal GI/Abdominal Exam: POSITIVE: Normal Bowel Sounds, Non Tender, Non Distended - Extremities Extremities Exam: POSITIVE: +1 Edema - Neurological Neurological Exam: POSITIVE: Alert, Oriented x 3 - Psychiatric Psychiatric Exam: POSITIVE: Normal Affect, Normal Mood - Integumentary Integumentary Exam: POSITIVE: Normal Color, Warm, Dry Patient Problems - Patient Problem List (1) Pre-eclampsia Status: Resolved Code(s): O14.90 - Unspecified pre-eclampsia, unspecified trimester Qualifiers: Category: Medical (2) Labor, prolonged latent phase Status: Resolved Code(s): O62.0 - Primary inadequate contractions Category: Medical (3) Status post repeat low transverse section Status: Acute Code(s): Z98.891 - History of uterine scar from previous surgery Category: Surgical
== END 2019-02-10 17:17 | disposition home or self-care (01) | DRG 788 ==
LOC: OBOP 07:58 → OBOR 11:17 → MED/SURG 14:33 → OBIP 14:36
PROVIDERS: ADMIT Family Medicine; ATTEND Family Medicine